=== PATIENT | female | born 1995 | race Caucasian/White ===

== ENCOUNTER 2020-05-20 14:11 | Emergency (ER) | payer OTHER, SELFPAY ==
[2020-05-20 14:33] VITALS: BP 107/79; PULSE 108; RESP 20; TEMP 37; O2SAT 97; BMI 46.8
--- NOTE | 2020-05-20 14:39 | XR_ITS ---
EXAMINATION: XR CHEST CLINICAL INFORMATION: Arrhythmia COMPARISON: None TECHNIQUE: 2 views of the chest were obtained. FINDINGS: The lungs are clear. The heart is normal in size. The vascularity is normal. There is no vascular congestion, airspace consolidation, or effusion. The mediastinal contours and bony structures are unremarkable. There is a right nipple piercing present. XR/XR chest 2V IMPRESSION: Unremarkable examination.
--- NOTE | 2020-05-20 14:39 | ECG_ITS ---
Test Reason : PALPITATIONS Blood Pressure : / mmHG Vent. Rate : 102 BPM Atrial Rate : 102 BPM P-R Int : 118 ms QRS Dur : 084 ms QT Int : 360 ms P-R-T Axes : 075 077 037 degrees QTc Int : 469 ms Sinus tachycardia Otherwise normal ECG No previous ECGs available Referred By: Generic ED Physician Electronically Signed By:CHRISTIANO LITTLE
--- NOTE | 2020-05-20 19:55 | ED.GENADULT ---
HPI - General Adult General Chief complaint: Arrhythmia/Palpitations Stated complaint: rapid heart rate Time Seen by Provider: 05/20/20 19:52 Source: patient Mode of arrival: ambulatory Limitations: no limitations History of Present Illness HPI narrative: Patient presents to ED for palpitations that occurred around 11:00 and lasted for 3 hours and then resolved. Patient denies any shortness of breath, coughing, fever, chills, weakness, dizziness, or passing out. Patient denies any recent surgery, recent long travel, blood clots. Patient denies any chest pain Related Data Home Medications Medication Instructions Recorded Confirmed No Known Home Meds 05/20/20 05/20/20 Allergies Allergy/AdvReac Type Severity Reaction Status Date / Time No Known Allergies Allergy Verified 05/20/20 14:38 Review of Systems Review of Systems: Yes all other systems are reviewed and are negative Constitutional: Constitutional: Reports as per HPI and Reports no additional constitutional complaints Eyes: Eyes: Reports as per HPI and Reports no additional eye complaints ENT: Reports system reviewed and no additional complaints, except as documented and Reports as per HPI Cardiovascular: Cardiovascular: Reports as per HPI and Reports no additional cardiovascular complaints Comments: palppitations Respiratory: Respiratory: Reports as per HPI and Reports no additional respiratory complaints Gastrointestinal: Gastrointestinal: Reports as per HPI and Reports no additional gastrointestinal complaints Genitourinary: Genitourinary: Reports no additional female genitourinary complaints and Reports as per HPI Musculoskeletal: Musculoskeletal: Reports no additional musculoskeletal complaints and Reports as per HPI Neurologic: Reports system reviewed and no additional complaints, except as documented and Reports as per HPI Psychiatric: Psychiatric: Reports no additional psychiatric complaints and Reports as per HPI [facility] Past Medical History Medical History (Updated 05/21/20 @ 00:00 by Background Daemon) No known health problems Social History Social History Alcohol intake: never Smoking Status: Never smoker Smoked in Last 30 Days: No Use of substances other than those prescribed or required for medical reasons: No Advance Directives: No Advance Directives Information Provided: Yes Physical Exam Vital Signs: Vital Signs: Last Vital Signs Temp 97.6 F 05/20/20 21:38 Pulse 94 05/20/20 21:38 Resp 20 05/20/20 21:38 BP 104/59 L 05/20/20 21:38 Pulse Ox 100 05/20/20 21:38 Body Mass Index 46.8 Const: General: cooperative, healthy appearing, comfortable, no acute distress, well developed, alert, awake and Physically active Orientation/consciousness: patient oriented x3 HENMT: Head: Yes normal to inspection and Yes No palpable skull fracture present Eyes: General: appearance normal, both eyes and all related structures Neck: Neck: Yes normal visual inspection, Yes full ROM, Yes no lymphadenopathy, Yes no meningeal signs, Yes trachea midline, Yes supple and No tender Chest: Chest palpation & inspection: normal inspection of the chest and normal palpation of entire chest wall Resp: Effort & Inspection: normal respiratory effort and able to speak in complete sentences Auscultation: clear to auscultation bilaterally Cardio: Jugular venous distension: no JVD Heart sounds: S1 normal heart sound present and S2 normal heart sound present GI: Inspection: Yes normal to inspection and No abdominal wall ecchymosis Palpation (GI): not firm, nontender, no guarding and not rigid : General: No CVA tenderness and Yes no CVA tenderness Back/Spine/Pelvis: Back: no CVA tenderness, No CVA tenderness and No back tenderness Skin: General skin exam: no rashes or lesions noted and elasticity normal Neuro: General: patient oriented x3, gait normal, no meningeal signs and CN's II-XI intact bilaterally Cranial nerves: Yes CN's II-XII intact bilaterally Extrem: Other: Lower extremities negative for any swelling, pitting edema, or calf tenderness. Psych: Appearance: grossly normal, well kempt and not disheveled Course Course Course Narrative: Patient will have labs drawn to rule out any dehydration, blood, or PE. Patient presently denies any distress. Denies any chest pain or shortness of breath presently Reevaluation(s) Reevaluation #1: Patient was asymptomatic throughout the whole ED visit. Troponin after 6 hours of onset came back negative. D-dimer negative. Perc score is 1. Kidney function is normal. Electrolytes normal. Thyroid hormone normal. Patient is safe for discharge. Time: 23:12 Medical Decision Making [facility] Narrative Medical decision making narrative: Palpitations Lab Data Result diagrams: 05/20/20 20:09 05/20/20 20:09 Labs: Lab Results 05/20/20 05/20/20 05/20/20 Range/Units 20:09 20:09 20:09 WBC 12.6 H (4.8-10.8) X10*3/uL RBC 3.87 L (4.20-5.50) X10*6/uL Hgb 10.8 L (12.0-16.0) g/dl Hct 33.5 L (37-47) % MCV 86.6 (80-98) fL MCH 27.9 (27.0-33.0) pg MCHC 32.2 (31.0-35.0) g/dl RDW 15.6 (11.0-16.0) % Plt Count 309 (160-400) X10*3/uL MPV 11.3 (9.4-12.3) fL Immature Gran % (Auto) 0.2 (0.0-0.4) % Neut % (Auto) 81.0 H (45-73) % Lymph % (Auto) 15.2 L (20-40) % [place] % (Auto) 3.2 (2-11) % Eos % (Auto) 0.1 (0-4) % Baso % (Auto) 0.3 (0-2) % Lymph # (Auto) 1.9 (1.2-4.9) X10*3/uL [place] # (Auto) 0.4 (0.1-1.2) X10*3/uL Eos # (Auto) 0.0 (0.0-0.4) X10*3/uL Baso # (Auto) 0.0 (0.0-0.2) X10*3/uL Abs Immat Gran (auto) 0.03 (0.00-0.03) X10*3/uL Absolute Neuts (auto) 10.2 H (2.0-8.3) X10*3/uL Absolute Nucleated RBC 0.000 (0.0-0.012) X10*3/uL Nucleated RBC % (auto) 0.0 (0.0-0.2) /100WBC PT (10.8-13.0) SEC INR (0.9-1.1) APTT (24.1-38.0) SEC D-Dimer NG/ML Hold Blue Top SEE NOTE Sodium 135 (135-145) mmol/L Potassium 4.5 (3.3-5.1) mmol/l Chloride 101 (96-108) mmol/L Carbon Dioxide 20 L (22-29) mmol/L Anion Gap 19 (12-20) BUN 16 (9-16) mg/dL Creatinine 0.72 (0.5-1.4) mg/dL Estim Creat Clear Calc 152.3 Estimated GFR > 60 Random Glucose 60 (60-115) mg/dL Calcium 9.2 (8.4-10.2) mg/dL Troponin I High Sens (<3.5-17.0) ng/L TSH (0.32-4.0) uIU/mL Beta HCG, Quant mIU/mL Urine Color Urine Appearance Urine pH (5.0-8.0) Ur Specific [place] (1.005-1.025) Urine Protein (NEG-TRACE) MG/DL Urine Glucose (UA) (NEG) MG/DL Urine Ketones (NEG) MG/DL Urine Blood (NEG) Urine Nitrite (NEG) Ur Leukocyte Esterase (NEG) Urine RBC (0) /HPF Urine WBC (0-4) /HPF Ur Squamous Epith Cells /LPF Urine Bacteria /LPF 05/20/20 05/20/20 05/20/20 Range/Units 20:09 20:09 20:10 WBC (4.8-10.8) X10*3/uL RBC (4.20-5.50) X10*6/uL Hgb (12.0-16.0) g/dl Hct (37-47) % MCV (80-98) fL MCH (27.0-33.0) pg MCHC (31.0-35.0) g/dl RDW (11.0-16.0) % Plt Count (160-400) X10*3/uL MPV (9.4-12.3) fL Immature Gran % (Auto) (0.0-0.4) % Neut % (Auto) (45-73) % Lymph % (Auto) (20-40) % [place] % (Auto) (2-11) % Eos % (Auto) (0-4) % Baso % (Auto) (0-2) % Lymph # (Auto) (1.2-4.9) X10*3/uL [place] # (Auto) (0.1-1.2) X10*3/uL Eos # (Auto) (0.0-0.4) X10*3/uL Baso # (Auto) (0.0-0.2) X10*3/uL Abs Immat Gran (auto) (0.00-0.03) X10*3/uL Absolute Neuts (auto) (2.0-8.3) X10*3/uL Absolute Nucleated RBC (0.0-0.012) X10*3/uL Nucleated RBC % (auto) (0.0-0.2) /100WBC PT 12.3 (10.8-13.0) SEC INR 1.0 (0.9-1.1) APTT (24.1-38.0) SEC D-Dimer < 200 NG/ML Hold Blue Top Sodium (135-145) mmol/L Potassium (3.3-5.1) mmol/l Chloride (96-108) mmol/L Carbon Dioxide (22-29) mmol/L Anion Gap (12-20) BUN (9-16) mg/dL Creatinine (0.5-1.4) mg/dL Estim Creat Clear Calc Estimated GFR Random Glucose (60-115) mg/dL Calcium (8.4-10.2) mg/dL Troponin I High Sens < 3.5 (<3.5-17.0) ng/L TSH 0.44 (0.32-4.0) uIU/mL Beta HCG, Quant < 2 mIU/mL Urine Color Urine Appearance Urine pH (5.0-8.0) Ur Specific [place] (1.005-1.025) Urine Protein (NEG-TRACE) MG/DL Urine Glucose (UA) (NEG) MG/DL Urine Ketones (NEG) MG/DL Urine Blood (NEG) Urine Nitrite (NEG) Ur Leukocyte Esterase (NEG) Urine RBC (0) /HPF Urine WBC (0-4) /HPF Ur Squamous Epith Cells /LPF Urine Bacteria /LPF 05/20/20 05/20/20 Range/Units 20:10 22:36 WBC (4.8-10.8) X10*3/uL RBC (4.20-5.50) X10*6/uL Hgb (12.0-16.0) g/dl Hct (37-47) % MCV (80-98) fL MCH (27.0-33.0) pg MCHC (31.0-35.0) g/dl RDW (11.0-16.0) % Plt Count (160-400) X10*3/uL MPV (9.4-12.3) fL Immature Gran % (Auto) (0.0-0.4) % Neut % (Auto) (45-73) % Lymph % (Auto) (20-40) % [place] % (Auto) (2-11) % Eos % (Auto) (0-4) % Baso % (Auto) (0-2) % Lymph # (Auto) (1.2-4.9) X10*3/uL [place] # (Auto) (0.1-1.2) X10*3/uL Eos # (Auto) (0.0-0.4) X10*3/uL Baso # (Auto) (0.0-0.2) X10*3/uL Abs Immat Gran (auto) (0.00-0.03) X10*3/uL Absolute Neuts (auto) (2.0-8.3) X10*3/uL Absolute Nucleated RBC (0.0-0.012) X10*3/uL Nucleated RBC % (auto) (0.0-0.2) /100WBC PT (10.8-13.0) SEC INR (0.9-1.1) APTT 28.6 (24.1-38.0) SEC D-Dimer NG/ML Hold Blue Top Sodium (135-145) mmol/L Potassium (3.3-5.1) mmol/l Chloride (96-108) mmol/L Carbon Dioxide (22-29) mmol/L Anion Gap (12-20) BUN (9-16) mg/dL Creatinine (0.5-1.4) mg/dL Estim Creat Clear Calc Estimated GFR Random Glucose (60-115) mg/dL Calcium (8.4-10.2) mg/dL Troponin I High Sens (<3.5-17.0) ng/L TSH (0.32-4.0) uIU/mL Beta HCG, Quant mIU/mL Urine Color YELLOW Urine Appearance CLEAR Urine pH 5.5 (5.0-8.0) Ur Specific [place] >= 1.030 H (1.005-1.025) Urine Protein NEG (NEG-TRACE) MG/DL Urine Glucose (UA) NEG (NEG) MG/DL Urine Ketones >=80 (NEG) MG/DL Urine Blood TRACE (NEG) Urine Nitrite NEG (NEG) Ur Leukocyte Esterase NEG (NEG) Urine RBC 0-2 (0) /HPF Urine WBC 0-2 (0-4) /HPF Ur Squamous Epith Cells 1+ /LPF Urine Bacteria TRACE /LPF ECG Data Interpretation: Sinus tachycardia. Ventricular rate 102. IN interval 118. QRS 84. QTC 469. Negative STEMI Discharge Plan Discharge Clinical Impression: Palpitations Patient Disposition: Home, Self-Care Instructions: Heart Palpitations (ED) Additional Instructions: Return to the ED immediately for any chest pain, shortness of breath, swelling of lower extremities, calf pain, coughing up blood, passing out, weakness, headache, dizziness, or any other concerning symptoms. Please follow up with your PCP. EKG normal. Troponin is negative. D-dimer negative. Chest x-ray normal. Kidney function normal. UA negative for UTI. Prescriptions: No Action No Known Home Meds RF: 0 Stand Alone Forms: Work/School Release Interventions: ED Discharge Assessment Last Done: 05/20/20 23:22 Discharge Date/Time: 05/20/20 23:23 Print Language: Macedonian
[2020-05-20 20:16] LABS: MANUAL DIFF FLAG NO
[2020-05-20 20:18] LABS: Basophils Percent Auto 0.3 % (0-2); Eosinophils Percent Auto 0.1 % (0-4); Hematocrit 33.5 % (37-47); Hemoglobin 10.8 g/dl (12.0-16.0); Imm Gran Abs Auto 0.03 X10*3/uL (0.00-0.03); Imm Gran Pct Auto 0.2 % (0.0-0.4); Lymphocytes Absolute Auto 1.9 X10*3/uL (1.2-4.9); Lymphocytes Percent Auto 15.2 % (20-40); Mean Corpuscular HGB Conc 32.2 g/dl (31.0-35.0); Mean Corpuscular Hemoglobin 27.9 pg (27.0-33.0); Mean Corpuscular Volume 86.6 fL (80-98); Mean Platelet Volume 11.3 fL (9.4-12.3); Monocytes Absolute Auto 0.4 X10*3/uL (0.1-1.2); Monocytes Percent Auto 3.2 % (2-11); Neutrophils Absolute Auto 10.2 X10*3/uL (2.0-8.3); Platelet Count 309 X10*3/uL (160-400); Red Blood Count 3.87 X10*6/uL (4.20-5.50); Red Cell Distribution Width 15.6 % (11.0-16.0); White Blood Count 12.6 X10*3/uL (4.8-10.8)
[2020-05-20 20:25] LABS: Prothrombin Time 12.3 SEC (10.8-13.0)
[2020-05-20 20:27] LABS: Partial Thromboplastin Time 28.6 SEC (24.1-38.0)
[2020-05-20 20:29] LABS: D Dimer < 200 NG/ML
[2020-05-20 20:40] LABS: Anion Gap 19 (12-20); Blood Urea Nitrogen 16 mg/dL (9-16); Calcium 9.2 mg/dL (8.4-10.2); Carbon Dioxide 20 mmol/L (22-29); Chloride 101 mmol/L (96-108); Creatinine Clr Calc Pharmacy 152.3; Estimated Glomerular Filt Rate > 60; Glucose Random 60 mg/dL (60-115); Potassium 4.5 mmol/l (3.3-5.1); Sodium 135 mmol/L (135-145)
[2020-05-20 20:46] LABS: Troponin-I High Sensitivity < 3.5 ng/L (<3.5-17.0)
[2020-05-20 21:01] LABS: Thyroid Stimulating Hormone 0.44 uIU/mL (0.32-4.0)
[2020-05-20] MEDS: 0.9 % Sodium Chloride 1,000 ML 999 ML IV (21:25)
[2020-05-20 21:33] LABS: HCG Quantitative < 2 mIU/mL
[2020-05-20 21:38] VITALS: BP 104/59; PULSE 94; RESP 20; TEMP 36.4; O2SAT 100
[2020-05-20 22:42] LABS: Glucose Urine UA NEG (NEG); Leukocyte Esterase Urine NEG (NEG); Nitrite Urine NEG (NEG); PH 5.5 (5.0-8.0); Specific Gravity - Urine >= 1.030 (1.005-1.025); Urine Blood TRACE (NEG); Urine Ketones >=80 MG/DL (NEG); Urine Protein NEG (NEG-TRACE)
[2020-05-20 23:02] LABS: Appearance Urine CLEAR; Color Urine YELLOW
[2020-05-20 23:03] LABS: Bacteria Urine TRACE /LPF; RBC Urine 0-2 /HPF (0); Squamous Epithelial Cell Urine 1+ /LPF; WBC Urine 0-2 /HPF (0-4)
== END 2020-05-20 23:23 | disposition home or self-care (01) ==
PROVIDERS: Physician Assistant; Emergency Provider Emergency Medicine
DX: R00.2 Palpitations (principal)
CPT/HCPCS: 36415; 71046; 80048; 81001; 84443; 84484; 84702; 85025; 85379; 85610; 85730; 93005; 96360; 99284

== ENCOUNTER 2022-08-06 16:54 | Inpatient (IN) | payer OTHER, SELFPAY ==
--- NOTE | ~2022-08-06 | CT_ITS ---
EXAMINATION: CT ABDOMEN AND PELVIS WITH CONTRAST CLINICAL INFORMATION: Right lower quadrant pain. COMPARISON: None available. TECHNIQUE: Multidetector volumetric images were obtained from the superior aspect of the liver through the pubic symphysis following administration 85 mL of Omnipaque 350 intravenous contrast. Sagittal and coronal reformatted images were obtained on the technologist's workstation. Oral contrast: No This CT examination was performed using dose optimization techniques as appropriate, variously including the following: *Automated exposure control *Adjustment of mA and/or kV according to patient size (this includes techniques or standardized protocols for targeted exams where dose is matched to indication/reason for exam; i.e. extremities or head) *Use of iterative reconstruction technique DLP: 315 mGy-cm FINDINGS: Limited by lack of oral contrast and by paucity of intra-abdominal fat. LUNG BASES: The lung bases appear clear, with no evidence of inflammation or nodules. LIVER, GALLBLADDER, AND BILIARY TREE: The liver appears unremarkable in size, shape, and attenuation. No focal hepatic lesion or biliary ductal dilatation is appreciated. Unremarkable appearance of the gallbladder. PANCREAS: Unremarkable SPLEEN: Unremarkable ADRENAL GLANDS: Unremarkable KIDNEYS AND URETERS: Subcentimeter, hypodense right upper pole round renal lesions likely representing benign simple cyst; no further dedicated follow up imaging is indicated. The kidneys otherwise appear unremarkable in size, shape, and attenuation. No hydronephrosis, hydroureter, or calculi seen. BLADDER: Unremarkable GASTROINTESTINAL TRACT: Vermiform appendix appears fluid-filled and measures 0.8 cm in diameter. Question mild induration of surrounding fat. PERITONEAL CAVITY: Trace fluid in the cul-de-sac, nonspecific. ABDOMINAL WALL: No significant hernia is appreciated. LYMPH NODES: No evidence of adenopathy by size criteria. VASCULAR: Unremarkable PELVIC VISCERA: IUD. OSSEOUS STRUCTURES: Unremarkable CT/CT abdomen pelvis w IV con IMPRESSION: Noted by lack of oral contrast and by paucity of intra-abdominal fat. Fluid-filled, borderline enlarged vermiform appendix. Question mild induration of surrounding fat. Cannot entirely exclude early or mild acute appendicitis. Trace fluid in the cul-de-sac, nonspecific. IUD.
[2022-08-06 17:04] VITALS: BP 120/86; PULSE 70; RESP 16; TEMP 36.7; O2SAT 100; BMI 20.3
--- NOTE | 2022-08-06 17:08 | ED.GENADULT ---
HPI - General Adult General Chief complaint: Abdominal Pain <OMARI Rob - Last Filed: 08/06/22 17:09> Stated complaint: Abdominal pain <OMARI Rob - Last Filed: 08/06/22 17:09> Time Seen by Provider: 08/06/22 18:13 <OMARI Rob - Last Filed: 08/06/22 17:09> Source: patient <Eri Head MD - Last Filed: 08/06/22 19:58> Mode of arrival: ambulatory <Eri Head MD - Last Filed: 08/06/22 19:58> Limitations: no limitations <Eri Head MD - Last Filed: 08/06/22 19:58> History of Present Illness HPI narrative: Patient comes to the emergency room complaining of periumbilical pain radiating towards the right lower quadrant. Patient states it started a few hours ago while she was at work. Patient has had multiple episodes of nausea, vomiting, no diarrhea. Patient denies any chest pain, shortness of breath, URI or UTI symptoms. <Eri Head MD - Last Filed: 08/06/22 19:58> Related Data Home medications: Home Medications Medication Instructions Recorded Confirmed No Known Home Meds 05/20/20 08/06/22 <OMARI Rob - Last Filed: 08/06/22 17:09> Allergies/adverse reactions: Allergies Allergy/AdvReac Type Severity Reaction Status Date / Time No Known Allergies Allergy Verified 08/06/22 17:04 <OMARI Rob - Last Filed: 08/06/22 17:09> Review of Systems Review of Systems: Constitutional : No Weight loss, No Fever, No Chills, No Night Sweats, No Fatigue, No Malaise ENT/Mouth : No Hearing loss, No Ear Pain, No Nasal Congestion, No Sinus Pain, No Hoarseness, No sore throat, No Rhinorrhea, No Swallowing Difficulty Eyes: No Eye Pain, No Swelling, No Redness, No Foreign Body, No Discharge, No Vision Changes Cardiovascular : No Chest Pain, No SOB, No Dyspnea on Exertion, No Orthopnea, No Edema, No Palpitations Respiratory : No Cough, No Sputum, No Wheezing, No Smoke Exposure, No Dyspnea Gastrointestinal complaining of nausea vomiting, No Diarrhea, No Constipation, complaining of periumbilical pain radiating to the right lower quadrant, no melena Genitourinary : no irregular bleeding, No Dysuria, No Urinary Frequency, No Hematuria, No Urinary Incontinence, No Urgency, No Flank Pain, No Urinary Flow Changes, No Hesitancy Musculoskeletal : No joint pain, No Myalgias, No Joint Swelling Skin : No Skin Lesions, No rash Neuro : No Weakness, No Numbness, No Paresthesias, No Loss of Consciousness, No Dizziness, No Headache Psych : No Anxiety/Panic, No Depression, No SI/HI/AH/VH, No Social Issues, Heme/Lymph: No Bruising, No Bleeding,No Lymphadenopathy Endocrine : No Polyuria, No Polydipsia, No Temperature Intolerance <Eri Head MD - Last Filed: 08/06/22 19:58> [facility] Past Medical History Medical History: Medical History No known health problems <OMARI Rob - Last Filed: 08/06/22 17:09> Social History Social History: Social History Alcohol intake: never Advance Directives: No Advance Directives Information Provided: Yes <OMARI Rob - Last Filed: 08/06/22 17:09> Physical Exam ED Vital Signs: Vital Signs - 24 hr 08/06/22 17:04 Temperature 98.0 F Pulse Rate 70 Respiratory Rate 16 Blood Pressure 120/86 Pulse Oximetry 100 Oxygen Delivery Method Room Air BMI result Body Mass Index 20.3 <OMARI Rob - Last Filed: 08/06/22 17:09> Vital Signs - 24 hr 08/06/22 17:04 Temperature 98.0 F Pulse Rate 70 Respiratory Rate 16 Blood Pressure 120/86 Pulse Oximetry 100 Oxygen Delivery Method Room Air BMI result Body Mass Index 20.3 <Eri Head MD - Last Filed: 08/06/22 19:58> Const Other: Appearance: Alert. Oriented X3. No acute distress. Eyes: Pupils equal, round and reactive to light. ENT: Pharynx normal. Neck: Normal inspection. Neck supple. No lymph nodes noted. No crepitus CVS: Normal heart rate and rhythm. Pulses normal. Normal S1 and S2 Respiratory: No respiratory distress. Breath sounds normal. No Wheezing. No rales Abdomen: Soft , tender to palpation in the periumbilical and right lower quadrant, no guarding, possible rebound Skin: Skin warm and dry. Normal skin color. Normal skin turgor. Extremities: No lower extremity edema. No Lacerations. No Rash Neuro: Oriented X 3. No motor deficit. No sensory deficit. Moving all extremities. No slurred speech. CN 2 through 12 grossly intact Psych: calm, cooperative, normal affect <Eri Head MD - Last Filed: 08/06/22 19:58> Course Course Course Narrative: RME performed by Nat Rausch PA-C. Patient is a 27 year old female presenting to the emergency department with abdominal pain, nausea, and vomiting. Labs ordered. Patient placed back in the waiting room pending results and room availability. <OMARI Rob - Last Filed: 08/06/22 17:09> Medications Administered Discontinued Medications Generic Name Dose Route Start Last Admin Trade Name Freq PRN Reason Stop Dose Admin Sodium Chloride 1,000 mls @ 999 mls/hr 08/06/22 18:21 08/06/22 18:27 Ns IVCONT 08/06/22 19:21 999 mls/hr .Q1H1M ONE Administration Iohexol 100 ml 08/06/22 18:24 08/06/22 18:24 Iohexol 350 Mg/Ml 100 Ml Infus..Btl IV 08/06/22 18:25 85 ml ONCE ONE Administration Ketorolac Tromethamine 30 mg 08/06/22 18:21 08/06/22 18:27 Ketorolac Tromethamine 30 Mg/Ml Vial IVPUSH 08/06/22 18:22 30 mg ONCE ONE Administration <OMARI Rob - Last Filed: 08/06/22 17:09> Medications Administered Discontinued Medications Generic Name Dose Route Start Last Admin Trade Name Freq PRN Reason Stop Dose Admin Sodium Chloride 1,000 mls @ 999 mls/hr 08/06/22 18:21 08/06/22 18:27 Ns IVCONT 08/06/22 19:21 999 mls/hr .Q1H1M ONE Administration Iohexol 100 ml 08/06/22 18:24 08/06/22 18:24 Iohexol 350 Mg/Ml 100 Ml Infus..Btl IV 08/06/22 18:25 85 ml ONCE ONE Administration Ketorolac Tromethamine 30 mg 08/06/22 18:21 08/06/22 18:27 Ketorolac Tromethamine 30 Mg/Ml Vial IVPUSH 08/06/22 18:22 30 mg ONCE ONE Administration <Eri Head MD - Last Filed: 08/06/22 19:58> Medical Decision Making Medical Decision Making [facility] Narrative: -based on physical exam, appendicitis is suspected. -white blood cell count 18 -patient receiving IV fluids, Toradol -CT is borderline suspicious for appendicitis. However, patient has an elevated white blood cell count, physical exam is consistent with appendicitis. -patient has already been started on Zosyn and IV fluids, given Toradol for pain. -sepsis is not suspected, patient's vitals within normal limits -I discussed the patient with Dr. Gordon from surgery, patient being admitted <Eri Head MD - Last Filed: 08/06/22 19:58> Differential Diagnosis Differential Diagnoses: The differential diagnosis associated with the presentation includes (Appendicitis, ovarian cyst) <Eri Head MD - Last Filed: 08/06/22 19:58> Admission/Observation Consideration of admission/observation: Escalation of care including admission/observation considered <Eri Head MD - Last Filed: 08/06/22 19:58> Consult Healthcare Provider Management of the patient was discussed with: Electrolytic De Scaler <Eri Head MD - Last Filed: 08/06/22 19:58> Lab Data [facility] Lab Attestation statement: I reviewed the patient's lab results. <Eri Head MD - Last Filed: 08/06/22 19:58> Result Diagrams: 08/06/22 17:37 08/06/22 17:37 <OMARI Rob - Last Filed: 08/06/22 17:09> Labs: Lab Results 08/06/22 08/06/22 08/06/22 Range/Units 17:37 17:37 18:33 WBC 17.9 H (4.8-10.8) X10*3/uL RBC 4.29 (4.20-5.50) X10*6/uL Hgb 12.6 (12.0-16.0) g/dl Hct 38.5 (37.0-47.0) % MCV 89.7 (80.0-98.0) fL MCH 29.4 (27.0-33.0) pg MCHC 32.7 (31.0-35.0) g/dl RDW 13.4 (11.0-16.0) % Plt Count 251 (160-400) X10*3/uL MPV 11.2 (9.4-12.3) fL Immature Gran % (Auto) 0.4 (0.0-0.4) % Neut % (Auto) 81.5 H (45-73) % Lymph % (Auto) 11.4 L (20-40) % [place] % (Auto) 4.4 (2-11) % Eos % (Auto) 1.8 (0-4) % Baso % (Auto) 0.5 (0-2) % Lymph # (Auto) 2.1 (1.2-4.9) X10*3/uL [place] # (Auto) 0.8 (0.1-1.2) X10*3/uL Eos # (Auto) 0.3 (0.0-0.4) X10*3/uL Baso # (Auto) 0.1 (0.0-0.2) X10*3/uL Abs Immat Gran (auto) 0.07 H (0.00-0.03) X10*3/uL Absolute Neuts (auto) 14.6 H (2.0-8.3) x10*3/uL Absolute Nucleated RBC 0.000 (0.0-0.012) X10*3/uL Nucleated RBC % (auto) 0.0 (0.0-0.2) /100WBC Sodium 141 (135-145) mmol/L Potassium 3.8 (3.3-5.1) mmol/L Chloride 106 (96-108) mmol/L Carbon Dioxide 25 (22-29) mmol/L Anion Gap 14 (12-20) BUN 15 (9-16) mg/dL Creatinine 0.81 (0.5-1.4) mg/dL Estim Creat Clear Calc 87.4 Estimated GFR > 60 Random Glucose 87 (60-115) mg/dL Calcium 9.3 (8.4-10.2) mg/dL Magnesium 1.9 (1.6-2.6) mg/dL Total Bilirubin 0.5 (0.0-1.0) mg/dL AST 16 (5-31) U/L ALT 10 (0-31) U/L Alkaline Phosphatase 64 (39-117) U/L Total Protein 7.0 (6.5-8.0) g/dL Albumin 4.4 (3.5-5.0) g/dL Beta HCG, Quant < 2 mIU/mL Urine Color Yellow Urine Appearance Turbid Urine pH 8.0 (5.0-9.0) Ur Specific [place] >= 1.030 H (1.005-1.025) Urine Protein Trace (Neg-Trace) mg/dL Urine Glucose (UA) Negative (Negative) mg/dL Urine Ketones 15 (Negative) mg/dL Urine Blood Negative (Negative) Urine Nitrite Negative (Negative) Ur Leukocyte Esterase Trace H (Negative) Urine RBC 0-2 (0-2) /HPF Urine WBC 0-5 (0-5) /HPF Ur Squamous Epith Cells 0-2 (0-2) /HPF Urine Bacteria Trace (None Seen) Hyaline Casts 0-2 (0-2) /LPF <OMARI Rob - Last Filed: 08/06/22 17:09> Lab Results 08/06/22 08/06/22 08/06/22 Range/Units 17:37 17:37 18:33 WBC 17.9 H (4.8-10.8) X10*3/uL RBC 4.29 (4.20-5.50) X10*6/uL Hgb 12.6 (12.0-16.0) g/dl Hct 38.5 (37.0-47.0) % MCV 89.7 (80.0-98.0) fL MCH 29.4 (27.0-33.0) pg MCHC 32.7 (31.0-35.0) g/dl RDW 13.4 (11.0-16.0) % Plt Count 251 (160-400) X10*3/uL MPV 11.2 (9.4-12.3) fL Immature Gran % (Auto) 0.4 (0.0-0.4) % Neut % (Auto) 81.5 H (45-73) % Lymph % (Auto) 11.4 L (20-40) % [place] % (Auto) 4.4 (2-11) % Eos % (Auto) 1.8 (0-4) % Baso % (Auto) 0.5 (0-2) % Lymph # (Auto) 2.1 (1.2-4.9) X10*3/uL [place] # (Auto) 0.8 (0.1-1.2) X10*3/uL Eos # (Auto) 0.3 (0.0-0.4) X10*3/uL Baso # (Auto) 0.1 (0.0-0.2) X10*3/uL Abs Immat Gran (auto) 0.07 H (0.00-0.03) X10*3/uL Absolute Neuts (auto) 14.6 H (2.0-8.3) x10*3/uL Absolute Nucleated RBC 0.000 (0.0-0.012) X10*3/uL Nucleated RBC % (auto) 0.0 (0.0-0.2) /100WBC Sodium 141 (135-145) mmol/L Potassium 3.8 (3.3-5.1) mmol/L Chloride 106 (96-108) mmol/L Carbon Dioxide 25 (22-29) mmol/L Anion Gap 14 (12-20) BUN 15 (9-16) mg/dL Creatinine 0.81 (0.5-1.4) mg/dL Estim Creat Clear Calc 87.4 Estimated GFR > 60 Random Glucose 87 (60-115) mg/dL Calcium 9.3 (8.4-10.2) mg/dL Magnesium 1.9 (1.6-2.6) mg/dL Total Bilirubin 0.5 (0.0-1.0) mg/dL AST 16 (5-31) U/L ALT 10 (0-31) U/L Alkaline Phosphatase 64 (39-117) U/L Total Protein 7.0 (6.5-8.0) g/dL Albumin 4.4 (3.5-5.0) g/dL Beta HCG, Quant < 2 mIU/mL Urine Color Yellow Urine Appearance Turbid Urine pH 8.0 (5.0-9.0) Ur Specific [place] >= 1.030 H (1.005-1.025) Urine Protein Trace (Neg-Trace) mg/dL Urine Glucose (UA) Negative (Negative) mg/dL Urine Ketones 15 (Negative) mg/dL Urine Blood Negative (Negative) Urine Nitrite Negative (Negative) Ur Leukocyte Esterase Trace H (Negative) Urine RBC 0-2 (0-2) /HPF Urine WBC 0-5 (0-5) /HPF Ur Squamous Epith Cells 0-2 (0-2) /HPF Urine Bacteria Trace (None Seen) Hyaline Casts 0-2 (0-2) /LPF <Eri Head MD - Last Filed: 08/06/22 19:58> Critical Care Time Critical Care Time Critical Care Time: Yes <Eri Head MD - Last Filed: 08/06/22 19:58> Total Critical Care Time: 50 <Eri Head MD - Last Filed: 08/06/22 19:58> Attestation: I have personally provided critical care time. Time includes review of lab data, radiology results, discussion with consultants, and monitoring for potential decompensation. Intervention performed as documented. <Eri Head MD - Last Filed: 08/06/22 19:58> Discharge Plan Discharge Clinical Impression: Acute appendicitis <OMARI Rob - Last Filed: 08/06/22 17:09> Patient Disposition: Admitted As Inpatient <OMARI Rob - Last Filed: 08/06/22 17:09> Prescriptions: No Action No Known Home Meds <OMARI Rob - Last Filed: 08/06/22 17:09>
[2022-08-06 17:43] LABS: MANUAL DIFF FLAG NO
[2022-08-06 17:45] LABS: Basophils Absolute Auto 0.1 X10*3/uL (0.0-0.2); Basophils Percent Auto 0.5 % (0-2); Eosinophils Absolute Auto 0.3 X10*3/uL (0.0-0.4); Eosinophils Percent Auto 1.8 % (0-4); Hematocrit 38.5 % (37.0-47.0); Hemoglobin 12.6 g/dl (12.0-16.0); Imm Gran Abs Auto 0.07 X10*3/uL (0.00-0.03); Imm Gran Pct Auto 0.4 % (0.0-0.4); Lymphocytes Absolute Auto 2.1 X10*3/uL (1.2-4.9); Lymphocytes Percent Auto 11.4 % (20-40); Mean Corpuscular HGB Conc 32.7 g/dl (31.0-35.0); Mean Corpuscular Hemoglobin 29.4 pg (27.0-33.0); Mean Corpuscular Volume 89.7 fL (80.0-98.0); Mean Platelet Volume 11.2 fL (9.4-12.3); Monocytes Absolute Auto 0.8 X10*3/uL (0.1-1.2); Monocytes Percent Auto 4.4 % (2-11); Neutrophils Absolute Auto 14.6 x10*3/uL (2.0-8.3); Neutrophils Percent Auto 81.5 % (45-73); Platelet Count 251 X10*3/uL (160-400); Red Blood Count 4.29 X10*6/uL (4.20-5.50); Red Cell Distribution Width 13.4 % (11.0-16.0); White Blood Count 17.9 X10*3/uL (4.8-10.8)
--- OUTSIDE RECORDS SUMMARY | 2022-08-06 17:51 | XMS_ITS | Continuity of Care Document ---
:1995 Author Organization [facility] Address [address] [place] [address]- Care Team Providers Name Role Phone Estela Rodriguez NP Primary Care Physician Encounter [facility] N[facility] [id number] Date(s): 08/05/21 - 08/12/21 [facility] [address] [place] [id number]- Encounter Diagnosis Well adult exam (Discharge Diagnosis) - 08/05/21 Tinea versicolor (Discharge Diagnosis) - 08/05/21 Pain of left breast (Discharge Diagnosis) - 08/05/21 Attending Physician: Estela Rodriguez NP Allergies, Adverse Reactions, Alerts No Known Allergies Immunizations Given and Recorded Vaccine Date Status Refusal Reason Influenza Virus Vaccine (oldterm)1 02/20/19 Recorded Influenza Virus Vaccine (oldterm) 06/06/12 Recorded Human Papillomavirus Vaccine 01/06/16 Recorded Human Papillomavirus Vaccine 09/19/14 Recorded Human Papillomavirus Vaccine 08/16/14 Recorded Varicella Virus Vaccine 08/16/14 Recorded Varicella Virus Vaccine 10/24/01 Recorded Meningococcal Conjugate Vaccine 08/16/14 Recorded Meningococcal Conjugate Vaccine 10/30/09 Recorded tetanus/diphtheria/pertussis, acel(Tdap) 10/30/09 Recorde d Poliovirus Vaccine, Inactivated 10/24/01 Recorded Poliovirus Vaccine, Inactivated 97 Recorded Poliovirus Vaccine, Inactivated 97 Recorded Poliovirus Vaccine, Inactivated 97 Recorded Measles/Mumps/Rubella Virus Vaccine 10/24/01 Recorded Measles/Mumps/Rubella Virus Vaccine 05/26/98 Recorded diphtheria/tetanus/pertussis, acel(DTaP) 10/24/01 Recorde d diphtheria/tetanus/pertussis, acel(DTaP) 11/14/98 Recorde d diphtheria/tetanus/pertussis, acel(DTaP) 97 Recorde d diphtheria/tetanus/pertussis, acel(DTaP) 97 Recorde d diphtheria/tetanus/pertussis, acel(DTaP) 97 Recorde d Haemophilus B Conj Vaccine (oldterm) 08/19/98 Recorded Haemophilus B Conj Vaccine (oldterm) 97 Recorded Haemophilus B Conj Vaccine (oldterm) 97 Recorded Haemophilus B Conj Vaccine (oldterm) 97 Recorded Hepatitis B Vaccine (old term) 97 Recorded Hepatitis B Vaccine (old term) 97 Recorded Hepatitis B Vaccine (old term) 97 Recorded Not Given Vaccine Date Status Refusal Reason tetanus-diphtheria toxoids (Td) 05/09/19 Not Given Parent Or Guardian Refuses 1Result Comment: pt received at [facility] Medications clotrimazole 1% topical cream 1 application, Topically, 2 times a day, for 14 days, # 113 Gm, 1 Refills, Acute 09/02/21 7:51:00 EDT, 08/05/21 7:51:00 EDT, Cream, [id number], Partial fill upon patient request if the prescription is for a schedule II opioid drug., 1 applicat... Start Date: 08/05/21 Stop Date: 09/02/21 Status: Ordered Problem List Condition Effective Dates Status Health Status Informant Childhood asthma(Confirmed) Active control counseling(Confirmed) Active Well adult exam(Confirmed) Active Diagnosis Diagnosis Type Effective Dates Health Clinical Infor mant Status Service Well adult exam Discharge 08/05/21 Diagnosis Tinea versicolor Discharge 08/05/21 Diagnosis Pain of left Discharge 08/05/21 breast Diagnosis Vital Signs Most recent to oldest [Reference Range]: 1 Height 163.20 cm (08/05/21 7:24 AM) Weight 54.7 kg (08/05/21 7:24 AM) Oxygen Saturation [94-100 %] 98 % (08/05/21 7:24 AM) Pulse Rate [55-90 bpm] 66 bpm (08/05/21 7:24 AM) Body Mass Index [18.5-24.99] 20.54 (08/05/21 7:24 AM) Blood Pressure [90-138/55-84 mm Hg] 102/68 mm Hg (08/05/21 7:24 AM) Respiratory Rate [16-30 br/min] 16 br/min (08/05/21 7:24 AM) Temperature [96.8-100.4 DegF] 98.0 DegF (08/05/21 7:24 AM) Mode of Delivery (Oxygen) Room air (08/05/21 7:24 AM) Blood pressure sites Arm, left (08/05/21 7:24 AM) Temperature Route Temporal (08/05/21 7:24 AM) Weight Obtained Via Standing scale (08/05/21 7:24 AM) Social History Social History Type Response Smoking Status Never (less than 100 in life time) entered on: 05/09/19 Sex
--- OUTSIDE RECORDS SUMMARY | 2022-08-06 17:51 | XMS_ITS | Continuity of Care Document ---
:1995 Author Organization [facility] Adult Address [address] [place] [address]- Care Team Providers Name Role Phone Kimberli Joe NP Primary Care Physician [facility] Date[facility] 05/09/19 - 05/16/19 [facility] Adult [address] [place] [address]- [facility] Encounter Diagnosis control counseling (Discharge Diagnosis) - 05/09/19 Well adult exam (Discharge Diagnosis) - 05/09/19 Childhood asthma (Discharge Diagnosis) - 05/09/19 Anxiety (Discharge Diagnosis) - 05/09/19 Attending Physician: Kimberli Joe NP Allergies, Adverse Reactions, Alerts Substance Reaction Severity Status NKA Active Immunizations Given and Recorded Vaccine Date Status [...] Guardian Refuses 1Result Comment: pt received at [facility] Medications Ortho Cyclen oral tablet 1 tablet, By Mouth, Daily, # 28 tablet, 3 Refills, Maintenance, 05/09/19 14:39:00 EST, Tablet, [id number], 1 tablet By Mouth Daily, 163.2, cm, 05/09/19 13:51:00 EST, Height Start Date: 05/09/19 Status: OrderedSUMAtriptan 50 mg oral tablet 1 tablet = 50 mg, By Mouth, Daily, PRN for migraine headache, for 30 days, may repeat dose after 2 hours up to a maximum of 2, # 3 tablet, 1 Refills, Acute 12/01/15 8:04:12, 10/02/15 8:04:12, Tablet Start Date: 10/02/15 Stop Date: 12/01/15 Status: OrderedTopamax 50 mg oral tablet 1 tablet = 50 mg, By Mouth, Daily at bedtime, # 30 tablet, 6 Refills, Maintenance, 10/02/15 8:05:13,Tablet Start Date: 10/02/15 Stop Date: 04/29/16 Status: OrderedVistaril pamoate 25 mg oral capsule 1 capsule = 25 mg, By Mouth, 3 times a day, PRN for anxiety, # 30 capsule, 0 Refills, Maintenance, 05/09/19 14:43:00 EST, Capsule, [id number], 163.2, cm, 05/09/19 13:51:00 EST, Height Start Date: 05/09/19 Status: Ordered Problem List Condition Effective Dates Status Health Status Informant Childhood asthma(Confirmed) Active control counseling(Confirmed) Active Well adult exam(Confirmed) Active Diagnosis Diagnosis Type Effective Dates Health Clinical Infor mant Status Service Childhood asthma Discharge 05/09/19 Diagnosis Well adult exam Discharge 05/09/19 Diagnosis control Discharge 05/09/19 counseling Diagnosis Anxiety Discharge 05/09/19 Diagnosis Vital Signs Most recent to oldest [Reference Range]: 1 Height 163.20 cm (05/09/19 1:51 PM) Weight 55.8 kg (05/09/19 1:51 PM) Oxygen Saturation [94-100 %] 100 % (05/09/19 1:51 PM) Pulse Rate [55-90 bpm] 96 bpm *H* (05/09/19 1:51 PM) Body Mass Index [18.5-24.99] 20.95 (05/09/19 1:51 PM) Blood Pressure [90-138/55-84 mm Hg] 98/84 mm Hg (05/09/19 1:51 PM) Respiratory Rate [16-30 br/min] 16 br/min (05/09/19 1:51 PM) Temperature [96.8-100.4 DegF] 97.6 DegF (05/09/19 1:51 PM) Mode of Delivery (Oxygen) Room air (05/09/19 1:51 PM) Blood pressure sites Arm, left (05/09/19 1:51 PM) Temperature Route Oral (05/09/19 1:51 PM) Weight Obtained Via Standing scale (05/09/19 1:51 PM) Social History Social History Type Response Smoking Status Never (less than 100 in life time) entered on: 05/09/19 Sex
--- OUTSIDE RECORDS SUMMARY | 2022-08-06 17:52 | XMS_ITS | Continuity of Care Document ---
:1995 Author Organization [facility] Adult Address [address] [place] [address]- Care Team Providers Name Role Phone Kimberli Joe NP Primary Care Physician [facility]counter [facility] Date(s): 05/29/20 - 06/29/20 [facility] Adult [address] [place] [address]- Attending Physician: Kimberli Joe NP Allergies, Adverse [...] Guardian Refuses 1Result Comment: pt received at [facility] Medications Ortho Tri-Cyclen oral tablet 1 tablet, By Mouth, Daily, # 28 tablet, 3 Refills, Maintenance, 11/26/19 8:47:00 EDT, Tablet, [facility]/pharmacy #[id number], 1 tablet By Mouth Daily, 163.2, cm, 05/09/19 13:51:00 EST, Height Start Date: 11/26/19 Status: OrderedSUMAtriptan 50 mg oral tablet 1 [...] Start Date: 10/02/15 Stop Date: 04/29/16 Status: OrderedTri-Previfem oral tablet 1 tablet, By Mouth, Daily, # 28 tablet, 3 Refills, Maintenance, 01/29/20 13:36:00 EDT, Tablet, [facility]/pharmacy #[id number], 1 tablet By Mouth Daily, 163.2, cm, 05/09/19 13:51:00 EST, Height Start Date: 01/29/20 Status: OrderedVistaril pamoate 25 mg oral capsule 1 capsule = 25 mg, By Mouth, 3 times a day, PRN for anxiety, # 30 capsule, 0 Refills, Maintenance, 05/09/19 14:43:00 EST, Capsule, [id number], 163.2, cm, 05/09/19 13:51:00 EST, Height Start Date: 05/09/19 Status: Ordered Problem List Condition Effective Dates Status Health Status Informant Childhood asthma(Confirmed) Active control counseling(Confirmed) Active Well adult exam(Confirmed) Active Social History Social History Type Response Smoking Status Never (less than 100 in life time) entered on: 05/09/19 Sex
--- OUTSIDE RECORDS SUMMARY | 2022-08-06 17:52 | XMS_ITS | Continuity of Care Document ---
:1995 Author Organization [facility] Adult Address [address] [place] [address]- Care Team Providers Name Role Phone Tatyana ONTIVEROS, Kimberli Primary Care Physician [facility] Date[facility]s): 01/29/20 - 02/28/20 [facility] Adult [address] [place] [address]- [facility] Allergies, Adverse Reactions, Alerts Substance Reaction Severity [...] Guardian Refuses 1Result Comment: pt received at [facility] Medications Ortho Tri-Cyclen oral tablet 1 tablet, By Mouth, Daily, # 28 tablet, 3 Refills, Maintenance, 11/26/19 8:47:00 EDT, Tablet, [facility]/pharmacy #[id number], 1 tablet By Mouth Daily, 163.2, [...] 3 Refills, Maintenance, 01/29/20 13:36:00 EDT, Tablet, [facility]/pharmacy #[id number], 1 tablet By Mouth Daily, 163.2, [...]
--- OUTSIDE RECORDS SUMMARY | 2022-08-06 17:52 | XMS_ITS | Continuity of Care Document ---
:1995 Author Organization [facility] Adult Address [address] [place] [address]- Care Team Providers Name Role Phone Kimberli Joe NP Primary Care Physician [facility]counter [facility] Date(s): 11/26/19 - 12/26/19 [facility] Adult [address] [place] [address]- [facility] Allergies, Adverse Reactions, Alerts Substance Reaction Severity [...] Guardian Refuses 1Result Comment: pt received at [facility] Medications Ortho Tri-Cyclen oral tablet 1 tablet, By Mouth, Daily, # 28 tablet, 3 Refills, Maintenance, 11/26/19 8:47:00 EDT, Tablet, [id number], 1 tablet By Mouth [...]
--- OUTSIDE RECORDS SUMMARY | 2022-08-06 17:52 | XMS_ITS | Continuity of Care Document ---
:1995 Author Organization [facility] Adult Address [address] [place] [address]- Care Team Providers Name Role Phone Tatyana ONTIVEROS, Kimberli Primary Care Physician [facility]counter [facility] Date(s): 02/09/21 - 03/11/21 [facility] Adult [address] [place] [address]- Allergies, Adverse Reactions, Alerts Substance Reaction Severity [...] Guardian Refuses 1Result Comment: pt received at [facility] Medications Ortho Tri-Cyclen oral tablet 1 tablet, By Mouth, Daily, # 28 tablet, 3 Refills, Maintenance, 11/26/19 8:47:00 EDT, Tablet, [facility]/pharmacy #[id number], 1 tablet By Mouth Daily, [...] 3 Refills, Maintenance, 01/29/20 13:36:00 EDT, Tablet, [facility]/pharmacy #[id number], 1 tablet By Mouth Daily, [...]
--- OUTSIDE RECORDS SUMMARY | 2022-08-06 17:52 | XMS_ITS | Continuity of Care Document ---
:1995 Author Organization [facility] Adult Address [address] [place] [address]- Care Team Providers Name Role Phone Tatyana ONTIVEROS, Kimberli Primary Care Physician [facility] Date[facility]s): 02/12/20 - 06/11/20 [facility] Adult [address] [place] [address]- Attending Physician: Kimberli Joe NP Referring Physician: Brooks FROST, Amish Morales Allergies, Adverse Reactions, Alerts Substance Reaction Severity [...] Guardian Refuses 1Result Comment: pt received at [facility] Medications Ortho Tri-Cyclen oral tablet 1 tablet, By Mouth, Daily, # 28 tablet, 3 Refills, Maintenance, 11/26/19 8:47:00 EDT, Tablet, [facility]/pharmacy #[id number], 1 tablet By Mouth Daily, [...] 3 Refills, Maintenance, 01/29/20 13:36:00 EDT, Tablet, [facility]/pharmacy #[id number], 1 tablet By Mouth Daily, [...]
--- OUTSIDE RECORDS SUMMARY | 2022-08-06 17:52 | XMS_ITS | Continuity of Care Document ---
:1995 Author Organization [facility] Address [address] [place] [address]- Care Team Providers Name Role Phone Esteal Rodriguez NP Primary Care Physician Encounter [facility] Date(s): 08/10/21 - 09/16/[address] [address] Attending Physician: Estela Rodriguez NP Admitting Physician: Estela Rodriguez NP Referring Physician: Estela Rodriguez NP Allergies, Adverse Reactions, [...] Guardian Refuses 1Result Comment: pt received at [facility] Problem List Condition Effective Dates Status Health Status Informant Childhood asthma(Confirmed) Active control counseling(Confirmed) Active Well adult exam(Confirmed) Active Social History Social History Type Response Smoking Status Never (less than 100 in life time) entered on: 05/09/19 Sex
--- OUTSIDE RECORDS SUMMARY | 2022-08-06 17:52 | XMS_ITS | Continuity of Care Document ---
:1995 Author Organization [facility] Adult Address [address] [place] [address]- Care Team Providers Name Role Phone Tatyana ONTIVEROS, Kimberli Primary Care Physician [facility] Date(s): 05/30/20 - 06/29/20 [facility] Adult [address] [place] [address]- Allergies, Adverse Reactions, Alerts Substance Reaction Severity [...] Guardian Refuses 1Result Comment: pt received at [facility] Medications Ortho Tri-Cyclen oral tablet 1 tablet, By Mouth, Daily, # 28 tablet, 3 Refills, Maintenance, 11/26/19 8:47:00 EDT, Tablet, [facility]/pharmacy #[id number], 1 tablet By Mouth Daily, 163.2, [...] 3 Refills, Maintenance, 01/29/20 13:36:00 EDT, Tablet, [facility]/pharmacy #[id number], 1 tablet By Mouth Daily, 163.2, [...]
--- OUTSIDE RECORDS SUMMARY | 2022-08-06 17:52 | XMS_ITS | Continuity of Care Document ---
:1995 Author Organization [facility] Adult Address [address] [place] [address]- Care Team Providers Name Role Phone Tatyana ONTIVEROS, Kimberli Primary Care Physician [facility] Date(s): 05/29/21 - 06/28/21 [facility] Adult [address] [place] [address]- Allergies, Adverse Reactions, Alerts No Known Allergies [...] Guardian Refuses 1Result Comment: pt received at [facility] Medications Ortho Tri-Cyclen oral tablet 1 tablet, By Mouth, Daily, # 28 tablet, 3 Refills, Maintenance, 11/26/19 8:47:00 EDT, Tablet, [facility]/pharmacy #[id number], 1 tablet By Mouth Daily, [...] 3 Refills, Maintenance, 01/29/20 13:36:00 EDT, Tablet, [facility]/pharmacy #[id number], 1 tablet By Mouth Daily, [...]
--- OUTSIDE RECORDS SUMMARY | 2022-08-06 17:52 | XMS_ITS | Continuity of Care Document ---
:1995 Author Organization [facility] Address [address] [id number]- Care Team Providers Name Role Phone Kimberli Joe NP Primary Care Physician Encounter [facility] Date(s): 06/12/21 - 07/12/21 [facility] [address] [place] [address]- Allergies, Adverse Reactions, Alerts No Known Allergies [...] Guardian Refuses 1Result Comment: pt received at [facility] Medications Ortho Tri-Cyclen oral tablet 1 [...]
--- OUTSIDE RECORDS SUMMARY | 2022-08-06 17:52 | XMS_ITS | Continuity of Care Document ---
:1995 Author Organization [facility] Adult Address [address] [place] [address]- Care Team Providers Name Role Phone Tatyana ONTIVEROS, Kimberli Primary Care Physician [facility]counter [facility] Date(s): 05/29/20 - 06/28/20 [facility] Adult [address] [place] [address]- Allergies, Adverse Reactions, Alerts Substance Reaction Severity [...] Guardian Refuses 1Result Comment: pt received at [facility] Medications Ortho Tri-Cyclen oral tablet 1 tablet, By Mouth, Daily, # 28 tablet, 3 Refills, Maintenance, 11/26/19 8:47:00 EDT, Tablet, [facility]/pharmacy #[id number], 1 tablet By Mouth Daily, [...] 3 Refills, Maintenance, 01/29/20 13:36:00 EDT, Tablet, [facility]/pharmacy #[id number], 1 tablet By Mouth Daily, [...]
--- OUTSIDE RECORDS SUMMARY | 2022-08-06 17:52 | XMS_ITS | Continuity of Care Document ---
:1995 Author Organization [facility] Adult Address [address] [place] [address]- Care Team Providers Name Role Phone Tatyana ONTIVEROS, Kimberli Primary Care Physician [facility] Date(s): 03/27/19 - 05/16/19 [facility] Adult [address] [place] [address]- [facility] Attending Physician: Daniela Mortensen NP Allergies, Adverse Reactions, Alerts Substance Reaction [...] Guardian Refuses 1Result Comment: pt received at [facility] Medications Ortho Cyclen oral tablet [...]
--- OUTSIDE RECORDS SUMMARY | 2022-08-06 17:52 | XMS_ITS | Continuity of Care Document ---
:1995 Author Organization [facility] Adult Address [address] [place] [address]- Care Team Providers Name Role Phone Kimberli Joe NP Primary Care Physician [facility]counter [facility] Date(s): 11/26/19 - 12/26/19 [facility] Adult [address] [place] [address]- [facility] Allergies, Adverse Reactions, Alerts Substance Reaction Severity [...] Guardian Refuses 1Result Comment: pt received at [facility] Medications Ortho Tri-Cyclen oral tablet [...]
--- OUTSIDE RECORDS SUMMARY | 2022-08-06 17:52 | XMS_ITS | Continuity of Care Document ---
:1995 Author Organization [facility] Adult Address [address] [place] [address]- Care Team Providers Name Role Phone Tatyana ONTIVEROS, Kimberli Primary Care Physician [facility] Date(s): 05/30/20 - 06/29/20 [facility] Adult [address] [place] [address]- Attending Physician: Admtr, Travis8 Admitting Physician: Admtr, Nakita Referring Physician: Admtr, Ar8 Allergies, Adverse Reactions, Alerts Substance Reaction Severity [...] Refuses 1Result Comment: pt received at [facility] Medications Ortho Tri-Cyclen oral tablet 1 [...]
--- OUTSIDE RECORDS SUMMARY | 2022-08-06 17:52 | XMS_ITS | Continuity of Care Document ---
:1995 Author Organization [facility] Adult Address [address] [place] [address]- Care Team Providers Name Role Phone Tatyana ONTIVEROS, Kimberli Primary Care Physician [facility] Date(s): 05/31/21 - 06/30/21 [facility] Adult [address] [place] [address]- Allergies, Adverse Reactions, Alerts No Known Allergies [...] received at [facility] Medications Ortho Tri-Cyclen oral tablet 1 tablet, By Mouth, Daily, # 28 tablet, 3 Refills, Maintenance, 11/26/19 8:47:00 EDT, Tablet, [facility]/pharmacy #[id number], 1 tablet By Mouth Daily, 163.2, [...] Refills, Maintenance, 01/29/20 13:36:00 EDT, Tablet, [facility]/pharmacy #[id number], 1 tablet By Mouth Daily, 163.2, [...]
--- OUTSIDE RECORDS SUMMARY | 2022-08-06 17:52 | XMS_ITS | Continuity of Care Document ---
:1995 Author Organization [facility] Adult Address [address] [place] [address]- Care Team Providers Name Role Phone Kimberli Joe NP Primary Care Physician [facility] Date(s): 05/30/20 - 07/02/20 [facility] Adult [address] [place] [address]- Attending Physician: Kimberli Joe NP Allergies, Adverse [...] Guardian Refuses 1Result Comment: pt received at [facility] Medications Ortho Tri-Cyclen oral tablet 1 tablet, By Mouth, Daily, # 28 tablet, 3 Refills, Maintenance, 11/26/19 8:47:00 EDT, Tablet, [facility]/pharmacy #[id number], 1 tablet By Mouth Daily, [...] 3 Refills, Maintenance, 01/29/20 13:36:00 EDT, Tablet, [facility]/pharmacy #[id number], 1 tablet By Mouth Daily, [...]
--- OUTSIDE RECORDS SUMMARY | 2022-08-06 17:52 | XMS_ITS | Continuity of Care Document ---
:1995 Author Organization [facility] Adult Address [address] [place] [address]- Care Team Providers Name Role Phone Kimberli Joe NP Primary Care Physician [facility] Date(s): 02/09/21 - 03/12/21 [facility] Adult [address] [place] [address]- Attending Physician: Kimberli Joe NP Allergies, Adverse [...] Guardian Refuses 1Result Comment: pt received at [facility] Medications Ortho Tri-Cyclen oral tablet 1 tablet, By Mouth, Daily, # 28 tablet, 3 Refills, Maintenance, 11/26/19 8:47:00 EDT, Tablet, [facility]/pharmacy #[id number], 1 tablet By Mouth Daily, [...] 3 Refills, Maintenance, 01/29/20 13:36:00 EDT, Tablet, [facility]/pharmacy #[id number], 1 tablet By Mouth Daily, [...]
--- OUTSIDE RECORDS SUMMARY | 2022-08-06 17:52 | XMS_ITS | Continuity of Care Document ---
:1995 Author Organization [facility] Adult Address [address] [place] [address]- Care Team Providers Name Role Phone Michael ONTIVEROS, Estela Morales Primary Care Physician [phone] Encounter [facility] Date(s): 05/29/21 - 08/13/21 [facility] Adult [address] [place] [address]- Attending Physician: Kimberli Joe NP Allergies, Adverse Reactions, Alerts No Known [...] at [facility] Medications clotrimazole 1% topical cream 1 application, [...]
--- OUTSIDE RECORDS SUMMARY | 2022-08-06 17:52 | XMS_ITS | Continuity of Care Document ---
:1995 Author Organization [facility] Adult Address [address] [place] [address]- Care Team Providers Name Role Phone Tatyana ONTIVEROS, Kimberli Primary Care Physician [facility] Date(s): 04/13/19 - 05/18/19 [facility] Adult [address] [place] [address]- [facility] Attending Physician: Daniela Mortensen NP Allergies, [...] Refuses 1Result Comment: pt received at [facility] Medications Ortho Cyclen oral tablet 1 tablet, [...]
--- OUTSIDE RECORDS SUMMARY | 2022-08-06 17:52 | XMS_ITS | Continuity of Care Document ---
:1995 Author Organization [facility] Adult Address [address] [place] [address]- Care Team Providers Name Role Phone Tatyana ONTIVEROS, Kimberli Primary Care Physician [facility] Date(s): 02/10/21 - 03/12/21 [facility] Adult [address] [place] [address]- Attending Physician: Admkendall, Nakita Admitting Physician: AdmtrNakita Referring Physician: Admtr, Ar8 Allergies, Adverse Reactions, [...] 3 Refills, Maintenance, 11/26/19 8:47:00 EDT, Tablet, [facility]/pharmacy #[id number], 1 tablet By Mouth [...] 3 Refills, Maintenance, 01/29/20 13:36:00 EDT, Tablet, [facility]/pharmacy #[id number], 1 tablet By Mouth [...]
--- OUTSIDE RECORDS SUMMARY | 2022-08-06 17:52 | XMS_ITS | Continuity of Care Document ---
:1995 Author Organization [facility] Adult Address [address] [place] [address]- Care Team Providers Name Role Phone Michael ONTIVEROS, Estela Morales Primary Care Physician [facility] Date(s): 07/14/21 - 08/13/21 [facility] Adult [address] [place] [address]- Attending Physician: Nakita Macias Admitting Physician: AdmtrNakita Referring Physician: Admtr, ArKaya Allergies, Adverse Reactions, Alerts No Known Allergies [...] Guardian Refuses 1Result Comment: pt received at [facility] Medications clotrimazole 1% topical cream 1 application, Topically, 2 times a day, for 14 days, # 113 Gm, 1 Refills, Acute 09/02/21 7:51:00 EDT, 08/05/21 7:51:00 EDT, Cream, [facility]/pharmacy #[id number], Partial fill upon patient request if [...]
[2022-08-06 18:07] LABS: Alanine Aminotransferase 10 U/L (0-31); Albumin Level 4.4 g/dL (3.5-5.0); Alkaline Phosphatase 64 U/L (39-117); Anion Gap 14 (12-20); Aspartate Amino Transferase 16 U/L (5-31); Bilirubin Total 0.5 mg/dL (0.0-1.0); Blood Urea Nitrogen 15 mg/dL (9-16); Calcium 9.3 mg/dL (8.4-10.2); Carbon Dioxide 25 mmol/L (22-29); Chloride 106 mmol/L (96-108); Creatinine Clr Calc Pharmacy 87.4; Estimated Glomerular Filt Rate > 60; Glucose Random 87 mg/dL (60-115); Magnesium 1.9 mg/dL (1.6-2.6); Potassium 3.8 mmol/L (3.3-5.1); Sodium 141 mmol/L (135-145)
[2022-08-06 18:08] LABS: HCG Quantitative < 2 mIU/mL
--- NOTE | 2022-08-06 18:23 | PC.NURSE ---
27 y/o F pw RLQ abdominal pain, TTP, VSS, aox3. pt has no medical/surgical hx. pt in gown, on monitor, IV in place, labs drawn and sent. ?appendicitis
[2022-08-06] MEDS: iohexoL 350 MG/ML 100 ML INFUS..BTL IV (18:24)
[2022-08-06] MEDS: 0.9 % Sodium Chloride 1,000 ML 999 ML IVCONT (18:27)
[2022-08-06] MEDS: Ketorolac Tromethamine 30 MG/ML VIAL IVPUSH (18:27)
[2022-08-06 18:39] LABS: Appearance Urine Turbid; Color Urine Yellow; Glucose Urine UA Negative (Negative); Leukocyte Esterase Urine Trace (Negative); Nitrite Urine Negative (Negative); Specific Gravity - Urine >= 1.030 (1.005-1.025); UMIC TRIGGER UACC YES; Urine Blood Negative (Negative); Urine Ketones 15 mg/dL (Negative); Urine Protein Trace mg/dL (Neg-Trace)
[2022-08-06 19:17] LABS: Bacteria Urine Trace (None Seen); Hyaline Casts Urine 0-2 /LPF (0-2); RBC Urine 0-2 /HPF (0-2); Squamous Epithelial Cell Urine 0-2 /HPF (0-2); WBC Urine 0-5 /HPF (0-5)
[2022-08-06] MEDS: Piperacillin Sodium/Tazobactam 3.375 GM in 0.9 % Sodium Chloride 50 ML IV (20:11)
--- NOTE | 2022-08-06 20:13 | P.HPGS_ITS ---
History of Present Illness History of Present Illness Date of Service: 08/07/22 Chief complaint: Acute appendicitis Narrative: Yanick Villatoro is a 27 year old female with complaints of right lower quadrant abdominal pain. The abdominal pain began in a periumbilical region in the gradually radiated to the right lower quadrant. She currently feels the pain low in the right lower quadrant. She denies a previous history of similar complaints. Pain was initially quite severe, approximally 10/10 but currently is down to 2 to 3/10. She did require 1 dose of pain medication during the night. She does feel the pain is much improved this morning and denies nausea, vomiting, fever or chills. There is no pain with movement in bed. [place] [address] [place] abdomen and pelvis revealed a thickened appendix suggestive of early appendicitis. She was admitted to the surgical service for further management. Review of Systems Review of Systems: Yes all other systems are reviewed and are negative Constitutional: Constitutional: Denies chills, Denies fever(s), Denies headache(s), Denies poor appetite and Denies weakness ENT: Denies headache(s) Cardiovascular: Cardiovascular: Denies chest pain, Denies irregular heart rhythm, Denies palpitations and Denies dyspnea Respiratory: Respiratory: Denies cough, Denies excessive phlegm production and Denies dyspnea Gastrointestinal: Gastrointestinal: Reports abdominal pain, Denies bloating, Denies change in bowel habits, Denies constipation, Denies heartburn, Denies diarrhea, Denies nausea and Denies vomiting Genitourinary: Genitourinary: Denies urinary frequency Musculoskeletal: Musculoskeletal: Denies back pain, Denies muscle weakness and Denies numbness Integumentary/Breasts: Skin/Breast: Denies changing lesions and Denies unusual bruising Neurologic: Denies headache(s), Denies numbness, Denies paresthesias and Denies weakness Psychiatric: Psychiatric: Denies anxiety and Denies depression Endocrine: Endocrine: Denies palpitations Hematologic/Lymphatic: Hematologic/Lymphatic: Denies lymphadenopathy PMFSH Past Medical History Medical History No known health problems Social History Social History Household Members: Family Housing: House Do you presently have visiting nurse or other home services: No Alcohol intake: current Alcohol intake frequency: holidays/special occasions only Patient Tobacco Use Status: Never used Tobacco Smoked in Last 30 Days: No e-Cigarette/Vaping Use: Never Used Use of substances other than those prescribed or required for medical reasons: No Have you been hit, kicked, punched, or otherwise hurt by someone within the past year? If so, by whom?: No Do you feel safe in your current relationship?: No Current Relationship Is there a partner from a previous relationship who is making you feel unsafe now?: No Are you made to feel afraid or neglected: No Advance Directives: No Advance Directives Information Provided: Yes Do you have thoughts of harming others: None Do you have a plan to hurt others: No Plan Recently lost weight without trying: No How much weight loss: Not applicable Eating poorly because of decreased appetite: No Nutrition screen score: 0 Nutrition Risks: No Nutritional Risk Patient : No : No Poor oral hygiene: No service: No Current occupational status: unemployed Meds Allergies Allergy/AdvReac Type Severity Reaction Status Date / Time No Known Allergies Allergy Verified 08/06/22 17:04 Active Medications: Current Medications Piperacillin Sod/Tazobactam (Sod 3.375 gm/ Sodium Chloride) 50 mls @ 100 mls/hr IV ONCE ONE Stop: 08/06/22 20:18 Last Admin: 08/06/22 20:11 Dose: 100 mls/hr Pharmacy Consult (Consult Rx Perform Med Rec) 1 each MISCELLANE ONCE PRN PRN Reason: Consult order Home Medications Medication Instructions Recorded Confirmed Last Taken Type No Known Home Meds 05/20/20 08/06/22 Unknown History Physical Exam Vital Signs: Vital Signs: Last Vital Signs Temp 98.0 F 08/06/22 17:04 Pulse 70 08/06/22 17:04 Resp 16 08/06/22 17:04 BP 120/86 08/06/22 17:04 Pulse Ox 100 08/06/22 17:04 O2 Del Method 08/06/22 17:04 BMI result Body Mass Index 20.3 Const: General: cooperative and no acute distress Nutritional Appearance: well nourished Orientation/consciousness: patient oriented x3 Limitations: no limitations HEENT: Head: Yes normocephalic and Yes atraumatic Ears: hearing grossly normal bilaterally Resp: Effort & Inspection: normal respiratory effort, no audible wheezes, no cough and no respiratory distress Cardio: Jugular venous distension: no JVD GI: Inspection: Yes normal to inspection Palpation (GI): Soft to palpation, Tenderness to palpation present (GI) in the RUQ and at McBurney's point; with no rebound tenderness and Rovsing's sign negative, no guarding and not rigid Percussion: Yes normal to percussion Auscultation: normal bowel sounds Rec ramses Exam - Female: deferred Skin: Other: Warm, dry, no rash Neuro: General: patient oriented x3 Extrem: General: Yes no clubbing, cyanosis or edema Results Results Labs: Short CBC 08/06/22 Range/Units 17:37 WBC 17.9 H (4.8-10.8) X10*3/uL Hgb 12.6 (12.0-16.0) g/dl Hct 38.5 (37.0-47.0) % Plt Count 251 (160-400) X10*3/uL BMP 08/06/22 17:37 Sodium 141 Potassium 3.8 Chloride 106 Carbon Dioxide 25 BUN 15 Creatinine 0.81 Calcium 9.3 Liver Function 08/06/22 Range/Units 17:37 Total Bilirubin 0.5 (0.0-1.0) mg/dL AST 16 (5-31) U/L ALT 10 (0-31) U/L Alkaline Phosphatase 64 (39-117) U/L Albumin 4.4 (3.5-5.0) g/dL Urine 08/06/22 Range/Units 18:33 Urine Color Yellow Urine Appearance Turbid Urine pH 8.0 (5.0-9.0) Ur Specific [place] >= 1.030 H (1.005-1.025) Urine Protein Trace (Neg-Trace) mg/dL Urine Glucose (UA) Negative (Negative) mg/dL Assessment and Plan (1) Acute appendicitis: Status: Acute Plan Patient presents with complaints of abdominal pain in the right lower quadrant 24 hours duration. Initial laboratories revealed a WBC of 17. CT abdomen and pelvis indicate early appendicitis. She was treated with IV antibiotics feels improved this morning. WBC down to 9. Discussed options of surgical intervention with laparoscopic appendectomy verses continued antibiotics with possible discharge later today or tomorrow. The possibility of recurrent ap pendicitis was also discussed. She is agreeable to continuing antibiotics to avoid surgery at this time. Time Spent With Patient Time: Total time managing care of this patient today ____ minutes. Quality Stroke Does the patient have a stroke diagnosis?: No VTE Prior VTE?: No VTE Risk Level:: Surgical - low VTE Device Contraindication: N/A - Device Ordered VTE Drug Contraindication: Treatment Not Indicated Procedures Date of Service Date of Service: 08/07/22
[2022-08-06] MEDS: Dextrose 5 % and Lactated Ring 1,000 ML 100 ML IVCONT (20:26)
--- NOTE | 2022-08-06 20:43 | PC.NURSE ---
I took over care of the pt at 1900. Pt is currently resting comfortably in bed with her father at the bedside. Pt reports no pain, nausea, or shortness of breath at this time. Pt has an IV in the left AC with D5LR running at this time. Pt will be admitted to med surg. Waiting for room assignment at this time.
--- NOTE | 2022-08-06 20:47 | MHC.CM.PN ---
CM met with admitted patient with bed assignment pending. A&Ox4. Lives with her father. No DME/services. J&J, Pfizer booster. Unemployed. PCP [facility]. No HCP on file. Declines. D/C plan: Home without services. Father will transport home. CM will follow for discharge planning.
[2022-08-06 23:38] LABS: COVID-19 Test Negative (Negative); IDNOW Serial# 6674DD1D
[2022-08-07 00:43] VITALS: BP 109/65; PULSE 74; RESP 16; TEMP 36.8; O2SAT 99
[2022-08-07 02:08] VITALS: BP 90/66; PULSE 66; RESP 16; TEMP 36.1; O2SAT 99
[2022-08-07] MEDS: Piperacillin Sodium/Tazobactam 3.375 GM in 0.9 % Sodium Chloride 50 ML IV ×2 (02:13→07:39)
[2022-08-07 02:17] VITALS: BMI 20.9
[2022-08-07 05:47] LABS: MANUAL DIFF FLAG NO
[2022-08-07 05:52] LABS: Basophils Absolute Auto 0.1 X10*3/uL (0.0-0.2); Basophils Percent Auto 0.7 % (0-2); Eosinophils Absolute Auto 0.3 X10*3/uL (0.0-0.4); Eosinophils Percent Auto 3.3 % (0-4); Hematocrit 31.3 % (37.0-47.0); Hemoglobin 10.2 g/dl (12.0-16.0); Imm Gran Abs Auto 0.02 X10*3/uL (0.00-0.03); Imm Gran Pct Auto 0.2 % (0.0-0.4); Lymphocytes Absolute Auto 2.2 X10*3/uL (1.2-4.9); Lymphocytes Percent Auto 24.6 % (20-40); Mean Corpuscular HGB Conc 32.6 g/dl (31.0-35.0); Mean Corpuscular Volume 92.1 fL (80.0-98.0); Mean Platelet Volume 11.7 fL (9.4-12.3); Monocytes Absolute Auto 0.7 X10*3/uL (0.1-1.2); Monocytes Percent Auto 7.7 % (2-11); Neutrophils Absolute Auto 5.7 x10*3/uL (2.0-8.3); Neutrophils Percent Auto 63.5 % (45-73); Platelet Count 168 X10*3/uL (160-400); Red Cell Distribution Width 13.3 % (11.0-16.0)
[2022-08-07] MEDS: Dextrose 5 % and Lactated Ring 1,000 ML 100 ML IVCONT (06:29)
[2022-08-07] MEDS: 0.9 % Sodium Chloride Flush 3 ML SYRINGE IVFLUSH (07:43)
[2022-08-07 08:00] VITALS: BP 93/57; PULSE 79; RESP 18; TEMP 36.7; O2SAT 99
--- NOTE | 2022-08-07 09:28 | PM.EVENT ---
Event Note Date of Service: 08/07/22 Event Note: Patient reports feeling improved. Abdominal pain is low. Discussed with patient and her father options including appendectomy, continued antibiotics, and elective outpatient appendectomy. She is agreeable to antibiotics and discharged to home today. Will discharge on oral antibiotics for 10 days. Follow up in the office next week. She was encouraged to call sooner for any new concerns. Time Spent With Patient Time: Total time managing care of this patient today ____ minutes.
--- NOTE | 2022-08-07 09:30 | P.DS_ITS ---
DS: Providers Provider Date of Service: 08/07/22 Date of admission: 08/06/22 20:08 Date of discharge: 08/07/22 Primary care physician: Unknown Physician Admitting clinician: Quincy Gordon Consults: 08/06/22 19:53 Consult to General Surgery Stat Consulting Provider: [facility] [place] General Surgeons Reason for consultation: appendicitis Discharging clinician: Quincy Gordon DS: Diagnosis Discharge Diagnosis (1) Acute appendicitis: Status: Acute DS: Summary Hospital Course Hospital Course: 27-year-old female patient presenting with periumbilical pain radiating down to the right lower quadrant 24 hours duration. Patient denied nausea or vomiting fever or chills. She denied a previous history of similar pain. She subsequently presented to the emergency department was noted to be tender in the right lower quadrant. CT abdomen and pelvis revealed a thickened appendix suggestive of early appendicitis without perforation or abscess. WBC was [address] on admission. She was placed on IV antibiotics overnight. On the 2nd hospital day the patient reports improvement her pain. She did require some pain medication during the night but generally felt improved. Repeat WBC was 9000. The option of laparoscopic appendectomy, the nude antibiotics, with her without interval appendectomy was discussed in detail with the patient and her father. She is comfortable with continuing the antibiotics and subsequent decided to avoid surgery at this time. She will be given a prescription for Augmentin the next 10 days. I have asked her to return to the office next week but should call sooner if the pain worsens. She expressed understanding and agrees with the plan. Status at Discharge Functional status at discharge: independent ambulation Overall status at discharge: patient is back to baseline Time Spent with Patient Time attestation: Total time managing care of this patient today ____ minutes. Discharge coordination time: Less than 30 minutes Quality: Safe Use of Opioids Does Pt have an Active Cancer Diagnosis on the Problem List?: No Quality: Stroke Does the patient have a stroke diagnosis?: No Physical Exam Vital Signs: Vital Signs: Last Vital Signs Temp 98.1 F 08/07/22 08:00 Pulse 79 08/07/22 08:00 Resp 18 08/07/22 08:00 BP 93/57 L 08/07/22 08:00 Pulse Ox 99 08/07/22 08:00 O2 Del Method 08/07/22 08:00 BMI result Body Mass Index 20.9 Const: General: cooperative and no acute distress Nutritional Appearance: well nourished Orientation/consciousness: patient oriented x3 Limitations: no limitations HEENT: Head: Yes normocephalic and Yes atraumatic Ears: hearing grossly normal bilaterally Resp: Effort & Inspection: normal respiratory effort, no audible wheezes, no cough and no respiratory distress Cardio: Jugular venous distension: no JVD GI: Inspection: Yes normal to inspection Palpation (GI): Soft to palpation, Tenderness to palpation present (GI) in the RUQ and at McBurney's point; with no rebound tenderness and Rovsing's sign negative, no guarding and not rigid Percussion: Yes normal to percussion Auscultation: normal bowel sounds Rectal Exam - Female: deferred Skin: Other: Warm, dry, no rash Neuro: General: patient oriented x3 Extrem: General: Yes no clubbing, cyanosis or edema DS: Data Data Completed and Pending Labs on day of discharge: Laboratory Results - last 24 hr 08/06/22 08/06/22 08/06/22 17:37 17:37 18:33 WBC 17.9 H RBC 4.29 Hgb 12.6 Hct 38.5 MCV 89.7 MCH 29.4 MCHC 32.7 RDW 13.4 Plt Count 251 MPV 11.2 Immature Gran % (Auto) 0.4 Neut % (Auto) 81.5 H Lymph % (Auto) 11.4 L Rice % (Auto) 4.4 Eos % (Auto) 1.8 Baso % (Auto) 0.5 Lymph # (Auto) 2.1 Rice # (Auto) 0.8 Eos # (Auto) 0.3 Baso # (Auto) 0.1 Abs Immat Gran (auto) 0.07 H Absolute Neuts (auto) 14.6 H Absolute Nucleated RBC 0.000 Nucleated RBC % (auto) 0.0 Sodium 141 Potassium 3.8 Chloride 106 Carbon Dioxide 25 Anion Gap 14 BUN 15 Creatinine 0.81 Estim Creat Clear Calc 87.4 Estimated GFR > 60 Random Glucose 87 Calcium 9.3 Magnesium 1.9 Total Bilirubin 0.5 AST 16 ALT 10 Alkaline Phosphatase 64 Total Protein 7.0 Albumin 4.4 Beta HCG, Quant < 2 Urine Color Yellow Urine Appearance Turbid Urine pH 8.0 Ur Specific [place] >= 1.030 H Urine Protein Trace Urine Glucose (UA) Negative Urine Ketones 15 Urine Blood Negative Urine Nitrite Negative Ur Leukocyte Esterase Trace H Urine RBC 0-2 Urine WBC 0-5 Ur Squamous Epith Cells 0-2 Urine Bacteria Trace Hyaline Casts 0-2 COVID-19 ([facility]) COVID-19 Clin Com 08/06/22 08/07/22 23:11 05:11 WBC 9.0 RBC 3.40 L D Hgb 10.2 L Hct 31.3 L MCV 92.1 MCH 30.0 MCHC 32.6 RDW 13.3 Plt Count 168 D MPV 11.7 Immature Gran % (Auto) 0.2 Neut % (Auto) 63.5 Lymph % (Auto) 24.6 Rice % (Auto) 7.7 Eos % (Auto) 3.3 Baso % (Auto) 0.7 Lymph # (Auto) 2.2 Rice # (Auto) 0.7 Eos # (Auto) 0.3 Baso # (Auto) 0.1 Abs Immat Gran (auto) 0.02 Absolute Neuts (auto) 5.7 Absolute Nucleated RBC 0.000 Nucleated RBC % (auto) 0.0 Sodium Potassium Chloride Carbon Dioxide Anion Gap BUN Creatinine Estim Creat Clear Calc Estimated GFR Random Glucose Calcium Magnesium Total Bilirubin AST ALT Alkaline Phosphatase Total Protein Albumin Beta HCG, Quant Urine Color Urine Appearance Urine pH Ur Specific [place] Urine Protein Urine Glucose (UA) Urine Ketones Urine Blood Urine Nitrite Ur Leukocyte Esterase Urine RBC Urine WBC Ur Squamous Epith Cells Urine Bacteria Hyaline Casts COVID-19 ([facility]) Negative COVID-19 Clin Com See Note Discharge Plan Discharge Anticipated Discharge Date/Time: 08/07/22 09:34 Patient Disposition: Home, Self-Care Discharge Diagnosis: Early acute appendicitis Referrals: Quincy Gordon MD [Physician] - 1 Week Physician,Erik Brannon [Primary Care Provider] - 1 Week Discharge Medications: New amoxicillin-pot clavulanate 875-125 mg tablet 1 tab PO BID Qty: 20 0RF acetaminophen-codeine 300-30 mg tablet 1 tab PO Q8H PRN (Reason: pain (scale score 7-10)) Qty: 10 0RF Discharge Orders: Discharge Order (Routine); Ordered 08/07/22 Ordered By: Quincy Gordon Diet: Advance to usual diet Activity on Discharge: As tolerated Stand Alone Forms: Patient Portal Discharge page Care Plan Goals: Return to normal activity and diet, resolution of abdominal pain Health Concerns: Abdominal pain in the right lower quadrant Plan of Treatment: Antibiotic management, possible elective appendectomy Assessment: Early acute appendicitis
== END 2022-08-07 10:02 | disposition home or self-care (01) | DRG 395 ==
LOC: HO.ED 19:58 → HO.EDOVER 20:27 → HO.S3 08-07 01:06
PROVIDERS: Physician Assistant Medical; Admitting Provider Surgery; Emergency Provider Emergency Medicine; Visit Provider Surgery
DX: K35.80 Unspecified acute appendicitis (principal); Z20.822 Contact with and (suspected) exposure to COVID-19
CPT/HCPCS: 36415; 74177; 80053; 81001; 81003; 83735; 84702; 85025; 87635; 99285; J1885; J2543; Q9967

== ENCOUNTER → 2022-08-26 15:26 | Outpatient (BNVA) | payer OTHER, SELFPAY | PROVIDERS: Visit Provider Surgery | DX: Z13.89 Encounter for screening for other disorder (principal) ==

== ENCOUNTER 2022-09-01 08:20 | Day surgery (SDC) | payer OTHER, SELFPAY ==
--- NOTE | 2022-08-31 10:16 | HO.ANESPROP2 ---
HPI - Anesthesia Eval Consult details Narrative: 27yo F for Appendectomy Laparoscopic Possible Open PMFSH Past Medical History Medical History Acute appendicitis No known health problems Social History Social History Household Members: Family Housing: House Do you presently have visiting nurse or other home services: No Alcohol intake: current Alcohol intake frequency: holidays/special occasions only Patient Tobacco Use Status: Never used Tobacco e-Cigarette/Vaping Use: Never Used service: No Current occupational status: unemployed Meds Allergies Allergy/AdvReac Type Severity Reaction Status Date / Time amoxicillin Allergy Rash Verified 09/01/22 08:51 Exam Exam Date and Time: August 31, 2022 1016 Pertinent Lab Results Pertinent Lab Results: Laboratory Tests 08/06/22 08/07/22 17:37 05:11 WBC 9.0 Hgb 10.2 L Hct 31.3 L Plt Count 168 D Sodium 141 Potassium 3.8 Chloride 106 Carbon Dioxide 25 BUN 15 Creatinine 0.81 Assessment and Plan Assessment Anesthesia Assessment: Chart Reviewed
[2022-09-01] VITALS (9 sets, daily range): BP systolic 95–119; BP diastolic 58–78; PULSE 78–108; RESP 14–18; TEMP 36.5–36.8; O2SAT 97–100; BMI 20.3
[2022-09-01 08:37] LABS: UPreg QC Valid YES; Urine Pregnancy NEGATIVE (NEGATIVE)
--- NOTE | 2022-09-01 09:12 | P.CONAN_ITS ---
[facility] Past Medical History Medical History Acute appendicitis No known health problems Surgical History History of Problems with Anesthesia: No Social History Social History Household Members: Family Housing: House Do you presently have visiting nurse or other home services: No Alcohol intake: current Alcohol intake frequency: holidays/special occasions only Patient Tobacco Use Status: Never used Tobacco e-Cigarette/Vaping Use: Never Used Use of substances other than those prescribed or required for medical reasons: Yes Substance Use Frequency: Occasionally Advance Directives: No Advance Directives Information Provided: Yes service: No Current occupational status: unemployed Meds Allergies Allergy/AdvReac Type Severity Reaction Status Date / Time amoxicillin Allergy Rash Verified 09/01/22 08:51 Active Medications: Current Medications Lactated Ringer's (Lr) 1,000 mls @ 100 mls/hr IVCONT .Q10H TYREE Metronidazole (Flagyl) 500 mg in 100 mls @ 100 mls/hr IV PREOP ONE Stop: 09/01/22 09:56 Home Medications Medication Instructions Recorded Confirmed Last Taken Type No Known Home Meds 08/26/22 08/26/22 Unknown History Exam Exam Date and Time: September 01, 2022 0912 Height,Weight and Vital Signs: Height 5 ft 3 in Weight 52.163 kg Last Vital Signs Temp 97.7 F 09/01/22 08:39 Pulse 89 09/01/22 08:39 Resp 16 09/01/22 08:39 BP 95/63 09/01/22 08:39 Pulse Ox 97 09/01/22 08:39 O2 Del Method Room Air 09/01/22 08:39 Pertinent Lab Results Pertinent Lab Results: Laboratory Tests 09/01/22 08:25 Urine Test NEGATIVE Airway Mallampati Class: I TM Dist: >3cm Neck ROM: Full Loose/Missing/Broken Teeth: No Heart: RRR Lungs: CTA Assessment and Plan Assessment Anesthesia Assessment: Anesthesia Plan Discussed and Chart Reviewed Final Anesthetic Review History of Problems with Anesthesia: No NPO: Yes ASA Class: II Final Preanesthetic Review: Meds/Allgs Chart Reviewed, Consent Obtained/Reviewed and Anes Risks/Benef Reviewed Patient Risk: Low Procedure Risk: Low Anesthetic Plan Anesthetic Plan: GA Disposition: Standard PACU
--- NOTE | 2022-09-01 09:38 | MHC.SHP ---
Pre-Procedural Eval Section A Date of Service: 09/01/22 The patient is an INPATIENT: No Changes since office visit: Yes Patient answered all questions; No Cold of Flu in the past 2 weeks, No New Medical Problems and No Changes in Medication The History & Physical has been completed within 30 days and I have reviewed it.: Yes Section B Chief Complaint: Unspecified acute appendicitis Allergies: Allergies Allergy/AdvReac Type Severity Reaction Status Date / Time amoxicillin Allergy Rash Verified 09/01/22 08:51 Plan Diagnosis/Plan: Unchanged I have reviewed the history and physical and performed a pertinent physical examination on my patient. No changes have occurred unless specified. Time Spent With Patient Time: Total time managing care of this patient today ____ minutes.
--- NOTE | 2022-09-01 10:54 | W.PM.OPN ---
Operative Note Operative Note Date of Service: 09/01/22 Narrative: Preoperative diagnosis: Acute appendicitis Postoperative diagnosis: Same Procedure: Laparoscopic appendectomy Surgeon: Quincy Gordon MD Materials Handler:Francheska Stacy PA-C Anesthesia: General endotracheal Indications for procedure: 27-year-old female patient with a prior history of acute appendicitis treated non operatively with IV antibiotics followed by oral antibiotics now presenting for elective interval appendectomy. Operative findings: Noninflamed appendix without evidence of abscess or perforation Specimen: appendix Estimated blood loss: less than 1 mL Complications: non Procedure details: Patient was brought to the OR and placed in a supine position. After administering general anesthesia the patient's abdomen was prepped with ChloraPrep and draped in a sterile fashion. A surgical time-out was called and consent confirmed. Patient received preoperative antibiotics and Venodyne boots were in place. Local anesthesia consisting of 0.5% Sensorcaine with epinephrine was infiltrated in periumbilical region. A 5 mm incision was made below the umbilicus and carried down through subcutaneous tissue. A Veress needle was then inserted while elevating abdominal cavity with towel clips. After a positive drop test the abdomen was insufflated to a pressure of 15 mm of mercury. The Veress needle was removed and a 5 mm trocar inserted. The camera was then inserted in the abdomen explored. A 2nd 5 mm trocars placed in the lower midline. A 12 mm trocar was then placed in the left lower quadrant. The patient was then placed in a Trendelenburg position and rotated to the left. The appendix was identified in the right lower quadrant and brought up using blunt dissecting clamps. The mesentery of the appendix was then divided using the LigaSure. The appendiceal artery was cauterized and divided using the LigaSure. Dissection was continued down to the base of the cecum. An Endo-TIMOTHY stapler with a purple reload was then used to divide the appendix at the base with the cecum. The appendix was then placed in Endo-Catch bag and brought out through the left lower quadrant incision. The abdomen was then irrigated with saline solution and suctioned dry. Wounds were checked for hemostasis. CO2 was then evacuated from the abdominal cavity and all trocars removed. Fascia was closed in the left lower quadrant incision using a [id number] 0 Polysorb suture. Skin was closed at all incisions using a subcuticular 4-0 Polysorb suture. Steri-Strips 2 x 2 gauze and Tegaderm were then applied. The patient tolerated the procedure well. Sponge, instrument, needle counts reported as correct. The patient was transferred to PACU in stable condition.
[2022-09-01] MEDS: fentaNYL citrate/PF 100 MCG/2 ML VIAL 25 MCG IVPUSH (11:29)
[2022-09-01] MEDS: oxyCODONE HCl Immed Release 5 MG TABLET PO (11:30)
--- NOTE | 2022-09-01 12:23 | PC.NURSE ---
PT GIVEN SCOPOLAMINE PATCH FOR COMPLAINT OF NAUSEA.
== END 2022-09-01 12:24 | disposition home or self-care (01) ==
PROVIDERS: Nurse Practitioner; Visit Provider Surgery
PROC: 0DTJ4ZZ Resection of Appendix, Percutaneous Endoscopic Approach (ICD-10-PCS; CPT 44970; principal; 2022-09-01 10:10)
DX: K35.80 Unspecified acute appendicitis (principal); Z88.1 Allergy status to other antibiotic agents
CPT/HCPCS: 44970; 81025; 88304; J2405; J3010